=== PATIENT | female | born 2000 | race Caucasian/White ===

== ENCOUNTER 2023-09-12 11:51 | Emergency (ER) | payer MEDICAID, OTHER | END 2023-09-12 13:44 | disposition home or self-care (01) | LOC: NAV ERS 11:51 | DX: S62.613A Displaced fracture of proximal phalanx of left middle finger, initial encounter for closed fracture (principal); Y04.0XXA Assault by unarmed brawl or fight, initial encounter; Y93.72 Activity, wrestling ==

== ENCOUNTER 2024-09-13 08:44 | Emergency (ER) | payer OTHER, SELFPAY | END 2024-09-13 09:45 | disposition home or self-care (01) | LOC: NAV ERS 08:44 | DX: J02.9 Acute pharyngitis, unspecified (principal) | CPT/HCPCS: 87081; 87430; 99283 ==

== ENCOUNTER 2024-11-24 08:39 | Emergency (ER) | payer SELFPAY | END 2024-11-24 09:27 | disposition home or self-care (01) | LOC: NAV ERS 08:39 | DX: J02.9 Acute pharyngitis, unspecified (principal); R05.9 Cough, unspecified | CPT/HCPCS: 87081; 87430; 99283 ==